=== PATIENT | female | born 1980 | race Caucasian/White ===

== ENCOUNTER 2022-04-04 16:02 | Emergency (ER) | payer OTHER, SELFPAY ==
[2022-04-04 16:50] VITALS: BP 119/86; PULSE 108; RESP 21; TEMP 37.3; O2SAT 100; BMI 45.2
[2022-04-04 16:56] LABS: UTC Influenza A Antigen Negative (Negative); UTC Influenza B Antigen Negative (Negative)
--- NOTE | 2022-04-04 17:07 | EXP.UTC ---
Discharge Plan Disposition Patient Disposition: Home, Self-Care Condition: Good Prescriptions Prescriptions: No Action sertraline 100 mg tablet 100 mg PO DAILY Referrals Follow up/Referrals: Mady Ghotra APRN [Primary Care Provider] - See instructions Activity Restrictions/Add. Instructions Additional Instructions/Restrictions: *Monitor Temp, Over the counter Motrin or Tylenol as directed/as needed Tylenol every 4 hours and Motrin every 6 hours (as long as your family doctor has told you that you can take it) for fever or pain. and straight to ER if unable to lower temp less than 101.0 after medication given *Warm salt water gargles may help to soothe the throat *Throat Lozenges? *Warm fluids like tea with honey may help to soothe the throat? *Sleep elevated *Humidifier/Vaporizer *Flonase 2 sprays in each nostril daily but be aware that it may take 2-3 days before you notice improvement *Bromfed may cause drowsiness. Know how it effects you (your child) before driving, caring for small child, or sending your child to school. Not other antihistamines/allergy medications while taking bromfed Your throat swab was sent for culture. Those results are typically sent to your primary care. Be sure to follow up in 2-3 days with your family doctor/primary care physician if no improvement so they can review those result and treat if necessary. If you don?t have a primary care doctor, I recommend you get one but in the mean time, you will have to return to a walk in clinic Follow up IMMEDIATELY for new or worsening symptoms or no Noticeable improvement over the next 48-72 hours. 911 for difficulty breathing or swallowing Clinical Impressions Clinical Impression: Viral syndrome Instructions Patient Instructions: Common Cold, DI for Viral Upper Respiratory Infection -- Adult Discharge ED Provider: Sienna Alba [facility] General Stated complaint: cough,runny nose flu test Time Seen by Provider: 04/04/22 17:07 History of Present Illness Provider Complaint: Patient states that her is home with the flu States that she was recently seen and treated for strep throat and she has been having chills, body aches and headache so she came in wanting to get tested for flu and checked again to see if her medication was clearing her strep throat Related Data Home Medications Medication Instructions Recorded Confirmed sertraline 100 mg tablet 100 mg PO DAILY Depression 04/04/22 04/04/22 Allergies Allergy/AdvReac Type Severity Reaction Status Date / Time codeine [CODEINE] Allergy Unknown Verified 03/28/22 11:50 [facility] Medical History (Updated 04/04/22 @ 17:29 by Sienna Alba APRN) Anxiety Depression History of gastroesophageal reflux (GERD) PCOS (polycystic ovarian syndrome) Surgical History History of cholecystectomy Social History (Updated 04/04/22 @ 17:09 by Eduarda Mckenzie RN) Smoking Status: Never smoker alcohol intake: never substance use type: denies use current occupational status: employed (self employed) and other Travel in the last 8 weeks: None number of children: 1 ROS Obtained: Yes All systems reviewed & no additional complaints except as documented and Yes Systems reviewed as appropriate & no additional complaints except as documented Constitutional Constitutional: Reports system reviewed and no additional complaints, except as documented, Reports as per HPI, Reports body ache, Reports chills and Reports headache(s) ENT Ears, Nose, Mouth, and Throat: Reports system reviewed and no additional complaints, except as documented, Reports as per HPI, Reports headache(s), Reports nasal congestion and Reports sore throat Cardiovascular Cardiovascular: Reports system reviewed and no additional complaints, except as documented and Reports as per HPI Neurologic Neurologic: Reports headache(s)
[2022-04-04 17:32] VITALS: BP 119/86; PULSE 108; RESP 21; TEMP 37.3; O2SAT 100
[2022-04-04 17:33] LABS: UTC Strep Screen (Rapid) Negative (Negative)
== END 2022-04-04 17:44 | disposition home or self-care (01) ==
PROVIDERS: Emergency Provider Nurse Practitioner; PCP Nurse Practitioner Family
DX: R05.9 Cough, unspecified (principal); R09.89 Other specified symptoms and signs involving the circulatory and respiratory systems; B34.9 Viral infection, unspecified
CPT/HCPCS: 87804; 87880; 99212; G0463

== ENCOUNTER → 2022-08-04 23:38 | Outpatient (CLI) | payer SELFPAY | LOC: LAB.DROPOF 23:40 | PROVIDERS: PCP Student in an Organized Health Care Education/Training Program; Visit Provider Student in an Organized Health Care Education/Training Program | DX: J02.9 Acute pharyngitis, unspecified (principal) | CPT/HCPCS: 87070 ==

== ENCOUNTER → 2022-08-21 06:26 | Outpatient (CLI) | payer SELFPAY | LOC: LAB.DROPOF 08-22 06:26 | PROVIDERS: PCP Student in an Organized Health Care Education/Training Program; Visit Provider Student in an Organized Health Care Education/Training Program | DX: J02.9 Acute pharyngitis, unspecified (principal); B34.9 Viral infection, unspecified | CPT/HCPCS: 87070 ==